=== PATIENT | female | born 1985 ===

== ENCOUNTER 2021-05-03 15:12 | Observation (INO) | payer OTHER, MEDICAID, SELFPAY ==
[2021-05-03] VITALS (9 sets, daily range): BP systolic 89–108; BP diastolic 44–61; PULSE 71–114; RESP 16–18; TEMP 36.3–36.7; O2SAT 98–100; BMI 27.7
[2021-05-03] MEDS: MORPHINE 4 MG/ML INJ (16:24)
[2021-05-03] MEDS: ONDANSETRON 4 MG/2 ML INJ (16:26)
[2021-05-03] MEDS: SODIUM CHLORIDE 0.9% 1,000 ML 100 ML IV (17:18)
[2021-05-03] MEDS: NICOTINE 14 PATCH 14 MG TOP (17:20)
--- NOTE | 2021-05-03 18:23 | P.HP_ITS ---
History of Present Illness History of Present Illness Date Patient Seen: 05/03/21 Time Patient Seen: 16:40 Chief complaint: uti with early sepsis Narrative: This is a 36 year old female with a past medical history of asthma, GERD, Crohn's disease (no current immunotherpay or steroids), fibromyalgia who presented to the [facility] ER with fevers, nausea, nonbloody and nonbilious vomiting, lower abdominal pain that feels like a stabbing sensation, and right-sided back pain. She does endorse urinary frequency but no dysuria over the past couple of days. She denies any recent chest pain, palpitations, cough, shortness of breath, lower extremity edema. She denies any rash. At this [facility] Emergency Room, the patient was febrile to 100.9, tachycardic, but slightly hypertensive in the remainder for vital signs were unremarkable. Sodium level was 133, potassium 3.5, chloride 99, CO2 24, BUN 10, creatinine 1.03, glucose 178, hepatic function labs were unremarkable. Urinalysis showed moderate leukocytes, positive leuk esterase, positive nitrate and was reflexed for culture. The patient also had blood cultures drawn. Microscopic urinalysis revealed greater than 50 wbc's, 3-10 RBCs, and many bacteria. CBC showed a mild leukocytosis with WBC of 10.9, the remainder of her CBC was unremarkable. COVID-19 testing was negative. Urine test was negative. Patient had a CT scan to evaluate for possible obstruction which was unremarkable but did show evidence of left-sided pyelonephritis (though her symptoms are R sided). Abdominal ultrasound did not show any biliary pathology. She was given multiple L of fluid boluses, and ceftriaxone. Patient was accepted for further management of pyelonephritis. Patient History Medical History (Updated 05/03/21 @ 19:42 by Raheem Storey DO) Asthma Crohn disease GERD (gastroesophageal reflux disease) Surgical History (Updated 05/03/21 @ 19:35 by Raheem Storey DO) H/O knee surgery Family & Social History Family history unavailable: Yes (Patient adopted at age 2) Social History: household members family,children Prior Living Arrangements House Safety & Behavioral: Feels Safe in Current Yes Environment Been Physically Hurt or No Threatened By a Person Suicidal Ideation Description None Tobacco & Substance use: Tobacco type cigarettes alcohol intake former Substance Use Type marijuana Meds Home Medications and Allergies Home Medications Medication Instructions Recorded Confirmed Type cetirizine 10 mg tablet 10 mg PO DAILY 05/03/21 05/03/21 History citalopram 40 mg tablet 40 mg PO DAILY 05/03/21 05/03/21 History cyclobenzaprine 10 mg tablet 10 mg PO TID PRN 05/03/21 05/03/21 History dicyclomine 20 mg tablet 20 mg PO Q6HR PRN 05/03/21 05/03/21 History doxepin 10 mg capsule 10 mg PO BEDTIME PRN 05/03/21 05/03/21 History fluticasone propionate 44 2 puff INHALATION DAILY 05/03/21 05/03/21 History mcg/actuation HFA aerosol inhaler fluticasone propionate 50 2 spray INTRANASAL DAILY 05/03/21 05/03/21 History mcg/actuation nasal spray,suspension ibuprofen 800 mg PO PRN PRN 05/03/21 05/03/21 History levonorgestrel 0.15 mg-ethinyl 1 tab PO DAILY 05/03/21 05/03/21 History estradiol 0.03 mg tablet montelukast 10 mg tablet 10 mg PO BEDTIME 05/03/21 05/03/21 History (Singulair) ondansetron 8 mg disintegrating 8 mg PO Q8H PRN 05/03/21 05/03/21 History tablet pantoprazole 40 mg tablet,delayed 40 mg PO DAILY 05/03/21 05/03/21 History release (Protonix) pregabalin 300 mg capsule (Lyrica) 300 mg PO BID 05/03/21 05/03/21 History tramadol 50 mg tablet 50 mg PO TID PRN 05/03/21 05/03/21 History Allergies Allergy/AdvReac Type Severity Reaction Status Date / Time lactase [From Dairy Aid] Allergy Verified 05/03/21 16:46 Penicillins Allergy Verified 05/03/21 16:46 promethazine Allergy Verified 05/03/21 16:46 wheat Allergy Verified 05/03/21 16:46 Review of Systems Review of Systems Narrative: All other systems reviewed with the patient and are negative unless otherwise stated. Exam Vital Signs (past 8 hours): - 05/03/21 16:19 05/03/21 17:20 Temperature 98.1 F Pulse Rate 114 H Respiratory Rate 18 Blood Pressure 108/58 L Pulse Oximetry 100 98 Oxygen Delivery Method Room Air Narrative Exam Narrative: GENERAL APPEARANCE: Well developed, well nourished, but acutely ill appearing female, hunched forward, rocking from nausea and discomfort SKIN: Inspection of the skin reveals no rashes, ulcerations or petechiae. HEENT: Normocephalic atraumatic, extraocular muscles are intact, oropharynx is clear and mucous membranes are moist, neck is supple without adenopathy NECK: Supple and symmetric. no tenderness, or masses were felt. CHEST: Normal AP diameter and normal contour without any kyphoscoliosis. LUNGS: Auscultation of the lungs revealed no wheezes, rhonchi, or rales. CARDIOVASCULAR: There was a regular rate and rhythm without any murmurs, gallops, rubs. Peripheral pulses were 2+ and symmetric. ABDOMEN: soft, non-distended. suprapubic and bilateral lower quadrant tenderness. R sided CVA tenderness. MUSCULOSKELETAL: There was no tenderness or effusions noted. Muscle strength and tone were normal. EXTREMITIES: No cyanosis, clubbing or edema. NEUROLOGIC: Alert and oriented x 3. Strength is +5/5 in the Upper Extremities and Lower Extremities Bilaterally. Sensation to touch was normal. Objective Imaging CT scan - abdomen: Radiologist's impression: IMPRESSION: 1. There is subtle heterogeneous enhancement of the left kidney and ureter with mild left perinephric stranding. These findings could be seen in pyelonephritis. -Recommend correlation with urinalysis. 2. No hydronephrosis. Assessment & Plan Assessment & Plan narrative: This is a 36 year old female with a past medical history of asthma, GERD, Crohn's disease (no current immunotherpay or steroids), fibromyalgia who presented to [facility] ER with fever, abdominal pain. Their ER was on divert, patient transferred here for further management of pyelonephritis. 1. Pyelonephritis, acute, present on admission - continue ceftriaxone 1g q24 hours (given approximately 05/03 @ 1400 at [facility] per nurse report) - CT imaging at [facility] shows L sided pyelonephritis, though patient's symptoms are on the R on exam. - continue fluids - follow up blood and urine cultures from [facility] ER - continue IVF given poor PO intake, bolus as needed. Received sepsis bundle at [facility] ER with 4L IVF and antibiotics given. 2. Asthma, chronic - replace home medications with formulary alternatives. - albuterol prn 3. Crohn's disease, chronic - patient not on any current therapies, planned to start new treatments next week but unclear which one. - she has not had recent diarrhea or flare. 4. GERD, chronic - continue home protonix 5. Fibromyalgia, chronic - continue home medications Code: Full, surrogate decision maker is her mother Dispo: Admitted under observation status DVT: Patient is low risk based on scoring, no need for DVT prophylaxis at this time I have utilized all available immediate resources to obtain, update, or review the patient's current medications. COVID-19 COVID-19 status: Negative Result date/Date tested (Pos, Neg/Pending): 05/03/21 Time Spent With Patient Critical Care time: I spent a total of [] minutes of critical care time on this patient's care today; this time is exclusive of procedural time. Quality MIPS - Admit I confirm the patient?s Advance Care Plan is present, Code status is documented, Surrogate decision maker is in patient?s record [If Yes, STOP here]: Yes
[2021-05-03] MEDS: OXYCODONE IR 5 MG TABLET PO (18:52)
[2021-05-03] MEDS: FLUTICASONE 120 SPRAY/16 GM SPRAY.SUSP NASAL (19:34)
[2021-05-03] MEDS: CITALOPRAM 10 MG TABLET 40 MG PO (19:35)
[2021-05-03] MEDS: LORATADINE 10 MG TABLET PO (19:35)
[2021-05-03] MEDS: BUDESONIDE 0.5 MG/2 ML NEB INH (20:21)
[2021-05-03] MEDS: SODIUM CHLORIDE 0.9% 1,000 ML 250 ML IV (20:34)
[2021-05-03] MEDS: PREGABALIN 75 MG CAPSULE 300 MG PO (20:42)
[2021-05-03] MEDS: TRAMADOL 50 MG TABLET PO (20:42)
[2021-05-03] MEDS: MONTELUKAST 10 MG TABLET PO (20:43)
[2021-05-03] MEDS: ONDANSETRON 4 MG/2 ML INJ IV (21:36)
--- NOTE | 2021-05-03 23:12 | PC.NURSE ---
BP low, provider aware. was only able to start 22g on Rt.forearm, infusing NS at 250cc. pt had multiple pain meds, morphine, oxycodone, tramadol but still having pain 7-8/10, FLACC 0-1. I let her know that her BP dropping could be due to the amount of pain meds she gets. I offered tylenol but she refused, pt says i will wait till I get to talk to the doctor tomorrow, I am too tired to talk.
--- NOTE | 2021-05-03 23:13 | PC.NURSE ---
Addendum to MAR: At 1624, 4mg IV Morphine scanned in the MAR for administration. MAR demonstrates 4mg given but only 2mg were administered, per physician order. The other 2mg remaining were wasted in the Pyxis with a witness verification. Unable to undo/edit the med adminstration in the MAR.
[2021-05-04] VITALS (13 sets, daily range): BP systolic 99–122; BP diastolic 49–76; PULSE 68–85; RESP 12–18; TEMP 36.2–36.9; O2SAT 96–100
[2021-05-04] MEDS: ONDANSETRON 4 MG/2 ML INJ IV ×4 (04:33→18:55)
[2021-05-04] MEDS: TRAMADOL 50 MG TABLET PO ×3 (04:36→18:51)
[2021-05-04] MEDS: ACETAMINOPHEN 325 MG TABLET 650 MG PO ×2 (05:57→14:00)
[2021-05-04 06:05] LABS: Add Manual Diff / Slide Review NO; Basophils Absolute Auto 0 /uL (0-100); Basophils Percent Auto 0.2 % (0-2); Eosinophils Absolute Auto 400 /uL (0-450); Hematocrit 32.4 % (36-46); Hemoglobin 10.7 g/dL (12.0-16.0); Lymphocytes Absolute Auto 1000 /uL (1100-4500); Lymphocytes Percent Auto 13.7 % (25-40); Mean Corpuscular HGB Conc 33.1 % (30-36); Mean Corpuscular Hemoglobin 28.5 PG (26-34); Mean Corpuscular Volume 86.2 fL (80-100); Monocytes Absolute Auto 600 /uL (0-900); Monocytes Percent Auto 8.5 % (3-14); Neutrophils Absolute Auto 5200 /uL (1500-7000); Neutrophils Percent Auto 72.6 % (50-75); Platelet Count 162 X10^3/uL (150-400); Red Blood Cell Count 3.76 X10^6/uL (4.0-5.2); Red Cell Distribution Width 14.9 % (11.6-14.8); White Blood Cell Count 7.1 X10^3/uL (4.5-11.0)
[2021-05-04 06:18] LABS: Alanine Aminotransferase 16 IU/L (<35); Albumin 3.1 g/dL (3.5-5.0); Albumin Globulin Ratio 1.1 (1.0-2.8); Alkaline Phosphatase 27 U/L (38-126); Aspartate Aminotransferase 27 IU/L (14-36); BUN Creatinine Ratio 13.8 (6-22); Bilirubin Total 0.5 mg/dL (0.2-1.3); Blood Urea Nitrogen 9 mg/dL (7-17); Calcium 7.6 mg/dL (8.4-10.2); Carbon Dioxide 25 mmol/L (22-32); Chloride 108 mmol/L (98-107); Estimated Glomerular Filt Rate > 60.0 mL/min (>60); Globulin 2.7 g/dL (1.7-4.1); Glucose 100 mg/dL (70-100); HEMOLYSIS 41 (0-50); Magnesium 1.8 mg/dL (1.6-2.3); Potassium 3.5 mmol/L (3.4-5.1); Sodium 138 mmol/L (137-145); Total Protein 5.8 g/dL (6.3-8.2)
[2021-05-04] MEDS: BUDESONIDE 0.5 MG/2 ML NEB INH ×2 (07:42→19:20)
[2021-05-04] MEDS: CITALOPRAM 10 MG TABLET 40 MG PO (09:18)
[2021-05-04] MEDS: FLUTICASONE 120 SPRAY/16 GM SPRAY.SUSP NASAL (09:18)
[2021-05-04] MEDS: LORATADINE 10 MG TABLET PO (09:19)
[2021-05-04] MEDS: PREGABALIN 75 MG CAPSULE 300 MG PO ×2 (09:19→20:40)
[2021-05-04] MEDS: CYCLOBENZAPRINE 10 MG TABLET PO ×2 (09:19→19:32)
[2021-05-04] MEDS: PANTOPRAZOLE DR 40 MG TABLET PO (09:19)
[2021-05-04] MEDS: NICOTINE 14 PATCH 14 MG TOP (09:19)
[2021-05-04] MEDS: SODIUM CHLORIDE 0.9% 1,000 ML 100 ML IV ×3 (09:20→19:48)
--- NOTE | 2021-05-04 10:21 | CM.DANOTE ---
DCP: Case received, EMR reviewed and met with patient. Introduced self end role. Was able to obtain some information from patient regarding regarding her current living situation prior to hospitalization. DCP assessment completed with information currently available. Patient is a 36 year old female who admitted yesterday afternoon to the care of the hospitalist team. PCP: Dr. Tran Payer: confirmed: [facility] Health Options/Medicaid. Patient came to the hospital, [facility] due to beds not being available for symptoms of UTI/Sepsis. Patient holds current diagnosis of pyelonephritis. She is here on some IV antibiotics. Patient has history of asthma, Chrohn's Disease, as well as Fibromyalgia. Met briefly with patient in her room. She was laying in bed. She is alert and oriented. Confirmed that she resides in [place] with her mother, Idalia. She is independent at baseline, and has primary care provider in the [facility]. She was complaining of pain, felt that she needed her medication every 4 hours. P: DCP to continue to follow. Patient should be able to go home when she is deemed medically stable, and when she can go on oral antibiotics. Radha Galicia RN/Cereal Chemist Discharge Planning/Care Management CM Discharge Assessment Start: 05/04/21 10:20 Freq: Status: Active Protocol: Document 05/04/21 10:20 (Rec: 05/04/21 10:21 [id number]) Discharge Planning Assessment Assigned Mental Health Assistant Radha Galicia RN/Cereal Chemist Advance Directives? No History Provided By Patient,Medical Record Prior Living Arrangements House Household Members family,children Type of transporation used prior to Drives own vehicle admit Independent with ADL's Yes Is patient alert and oriented? Yes Caregiver for Another No Barriers to Discharge No Discharge Plan Home Transportation Arrangement Family Referrals Initiated None needed Whiteboard Updated in Patient Room with Yes name and ext. # of Mental Health Assistant Review Status In Process Next Review Type Continued Stay Review
--- NOTE | 2021-05-04 10:30 | PC.NURSE ---
Addendum entered by Marva Soriano R.N. 05/04/21 11:07: Went to patients room to follow-up on pain medication order change. Patient currently resting with eyes closed, breathing unlabored. Call light in reach. Will continue to monitor Original Note: Patient A/O x 3, resting in bed, VSS, lungs CTA, pt c/o flank back pain 02/10. Discussed pain medication options, patient would like to speak to MD about d/c oxycodone. C/O nausea, zofran administered. Patient up to restroom with SBA, NS infusing at 100cc/hr, site remains free of complications. Patient denies further needs at this time. Call light in reach, will continue to monitor.
[2021-05-04] MEDS: cefTRIAXone 1,000 MG in SODIUM CHLORIDE 0.9% 100 ML 200 ML IV (13:41)
--- NOTE | 2021-05-04 14:58 | PM.PN.1 ---
Subjective Subjective Date Patient Seen: 05/04/21 Time Patient Seen: 08:00 Interval history: Today she states she still has significant back pain. She said she vomitted earlier today when trying to eat. Exam Vital Signs (past 8 hours): - 05/04/21 07:42 05/04/21 08:03 05/04/21 11:00 Temperature 97.2 F L Pulse Rate 68 77 Respiratory Rate 12 16 Blood Pressure 99/60 Pulse Oximetry 99 99 96 05/04/21 11:21 05/04/21 12:15 Temperature 97.9 F Pulse Rate 70 Respiratory Rate 18 Blood Pressure 110/68 Pulse Oximetry 100 99 Oxygen Delivery Method Room Air Oxygen Flow Rate 0 Narrative Exam Narrative: GENERAL APPEARANCE:no acute distress LUNGS: clear bilaterally CARDIOVASCULAR: regular rate and rhythm without any murmurs ABDOMEN: soft, non-distended, mild diffuse tenderness. R CVA tendernessl. EXTREMITIES: No edema. NEUROLOGIC: Alert and oriented x 3. No focal deficits Objective Labs Result Diagrams: 05/04/21 05:35 05/04/21 05:35 Labs: Laboratory Results - last 24 hr 05/04/21 05/04/21 05:35 05:35 WBC 7.1 RBC 3.76 L Hgb 10.7 L Hct 32.4 L MCV 86.2 MCH 28.5 MCHC 33.1 RDW 14.9 H Plt Count 162 Neut % (Auto) 72.6 Lymph % (Auto) 13.7 L [place] % (Auto) 8.5 Eos % (Auto) 5.0 H Baso % (Auto) 0.2 Neut # (Auto) 5200 Lymph # (Auto) 1000 L [place] # (Auto) 600 Eos # (Auto) 400 Baso # (Auto) 0 Sodium 138 Potassium 3.5 Chloride 108 H Carbon Dioxide 25 BUN 9 Creatinine 0.65 Estimated GFR > 60.0 BUN/Creatinine Ratio 13.8 Glucose 100 Calcium 7.6 L Magnesium 1.8 Total Bilirubin 0.5 AST 27 ALT 16 Alkaline Phosphatase 27 L Total Protein 5.8 L Albumin 3.1 L Globulin 2.7 Albumin/Globulin Ratio 1.1 PFSH Medical History (Updated 05/03/21 @ 19:42 by Raheem Storey DO) Asthma Crohn disease GERD (gastroesophageal reflux disease) Surgical History (Updated 05/03/21 @ 19:35 by Raheem Storey DO) H/O knee surgery Social History household members: family and children alcohol intake: former Assessment & Plan Assessment & Plan narrative: 36 year old female with a past medical history of asthma, GERD, Crohn's disease (no current immunotherpay or steroids), fibromyalgia who presented to [facility] ER with fever, abdominal pain. Their ER was on divert, patient transferred here for further management of pyelonephritis. 1. Pyelonephritis, acute, present on admission ?- continue ceftriaxone 1g q24 hours (given approximately 05/03 @ 1400 at [facility] per nurse report) ?- CT imaging at [facility] shows L sided pyelonephritis, though patient's symptoms are on the R on exam. ?- continue fluids ?- follow up blood and urine cultures from [facility] ER 2. Asthma, chronic ?- replace home medications with formulary alternatives. ?- albuterol prn 3. Crohn's disease, chronic ?- patient not on any current therapies, planned to start new treatments next week but unclear which one. ?- she has not had recent diarrhea or flare. 4. GERD, chronic ?- continue home protonix 5. Fibromyalgia, chronic ?- continue home medications Time Spent With Patient Critical Care time: I spent a total of [] minutes of critical care time on this patient's care today; this time is exclusive of procedural time.
[2021-05-04] MEDS: MONTELUKAST 10 MG TABLET PO (20:40)
[2021-05-04] MEDS: METOCLOPRAMIDE 10 MG/2 ML INJ IV (20:48)
[2021-05-04] MEDS: MORPHINE 2 MG/ML INJ 1 MG IV (21:30)
[2021-05-05] MEDS: MORPHINE 2 MG/ML INJ 1 MG IV (02:11)
[2021-05-05] MEDS: ONDANSETRON 4 MG/2 ML INJ IV ×2 (02:19→08:58)
[2021-05-05] MEDS: TRAMADOL 50 MG TABLET PO ×2 (02:53→08:48)
[2021-05-05 03:00] VITALS: O2SAT 99
[2021-05-05 03:44] VITALS: BP 111/69; PULSE 94; RESP 16; TEMP 37.1; O2SAT 98
[2021-05-05] MEDS: CYCLOBENZAPRINE 10 MG TABLET PO (05:44)
[2021-05-05] MEDS: SODIUM CHLORIDE 0.9% 1,000 ML 100 ML IV (05:45)
[2021-05-05 06:32] LABS: Add Manual Diff / Slide Review NO; Basophils Absolute Auto 0 /uL (0-100); Basophils Percent Auto 0.3 % (0-2); Eosinophils Absolute Auto 200 /uL (0-450); Eosinophils Percent Auto 5.1 % (2-4); Hematocrit 31.4 % (36-46); Hemoglobin 10.7 g/dL (12.0-16.0); Lymphocytes Absolute Auto 1000 /uL (1100-4500); Lymphocytes Percent Auto 21.5 % (25-40); Mean Corpuscular HGB Conc 34.1 % (30-36); Mean Corpuscular Hemoglobin 28.9 PG (26-34); Mean Corpuscular Volume 84.6 fL (80-100); Monocytes Absolute Auto 500 /uL (0-900); Monocytes Percent Auto 10.8 % (3-14); Neutrophils Absolute Auto 3000 /uL (1500-7000); Neutrophils Percent Auto 62.3 % (50-75); Platelet Count 190 X10^3/uL (150-400); Red Blood Cell Count 3.72 X10^6/uL (4.0-5.2); White Blood Cell Count 4.8 X10^3/uL (4.5-11.0)
[2021-05-05 06:40] LABS: Alanine Aminotransferase 16 IU/L (<35); Albumin 3.1 g/dL (3.5-5.0); Albumin Globulin Ratio 1.1 (1.0-2.8); Alkaline Phosphatase 38 U/L (38-126); Aspartate Aminotransferase 20 IU/L (14-36); BUN Creatinine Ratio 3.8 (6-22); Bilirubin Total 0.3 mg/dL (0.2-1.3); Blood Urea Nitrogen 3 mg/dL (7-17); Carbon Dioxide 25 mmol/L (22-32); Chloride 107 mmol/L (98-107); Estimated Glomerular Filt Rate > 60.0 mL/min (>60); Globulin 2.7 g/dL (1.7-4.1); Glucose 89 mg/dL (70-100); HEMOLYSIS < 15 (0-50); Magnesium 1.7 mg/dL (1.6-2.3); Potassium 3.5 mmol/L (3.4-5.1); Sodium 139 mmol/L (137-145); Total Protein 5.8 g/dL (6.3-8.2)
[2021-05-05 07:24] VITALS: BP 121/79; PULSE 93; RESP 16; TEMP 37.8; O2SAT 98
[2021-05-05 08:00] VITALS: O2SAT 98
[2021-05-05] MEDS: FLUTICASONE 120 SPRAY/16 GM SPRAY.SUSP NASAL (08:46)
[2021-05-05] MEDS: CITALOPRAM 10 MG TABLET 40 MG PO (08:47)
[2021-05-05] MEDS: NICOTINE 14 PATCH 14 MG TOP (08:47)
[2021-05-05] MEDS: LORATADINE 10 MG TABLET PO (08:47)
[2021-05-05] MEDS: PANTOPRAZOLE DR 40 MG TABLET PO (08:48)
[2021-05-05] MEDS: PREGABALIN 75 MG CAPSULE 300 MG PO (08:48)
[2021-05-05 08:53] VITALS: RESP 18; O2SAT 98
[2021-05-05] MEDS: BUDESONIDE 0.5 MG/2 ML NEB INH (08:53)
--- NOTE | 2021-05-05 18:50 | P.DS_ITS ---
History of Present Illness History of Present Illness Chief complaint: uti with early sepsis Narrative: Per Dr. Storey: his is a 36 year old female with a past medical history of asthma, GERD, Crohn's disease (no current immunotherpay or steroids), fibromyalgia who presented to the [facility] ER with fevers, nausea, nonbloody and nonbilious vomiting, lower abdominal pain that feels like a stabbing sensation, and right- sided back pain. She does endorse urinary frequency but no dysuria over the pa st couple of days. She denies any recent chest pain, palpitations, cough, shortness of breath, lower extremity edema. She denies any rash. At this [facility] Emergency Room, the patient was febrile to 100.9, tachycardic, but slightly hypertensive in the remainder for vital signs were unremarkable. Sodium level was 133, potassium 3.5, chloride 99, CO2 24, BUN 10, creatinine 1.03, glucose 178, hepatic function labs were unremarkable. Urinalysis showed moderate leukocytes, positive leuk esterase, positive nitrate and was reflexed for culture. The patient also had blood cultures drawn. Microscopic urinalysis revealed greater than 50 wbc's, 3-10 RBCs, and many bacteria. CBC showed a mild leukocytosis with WBC of 10.9, the remainder of her CBC was unremarkable. COVID-19 testing was negative. Urine test was negative. Patient had a CT scan to evaluate for possible obstruction which was unremarkable but did show evidence of left-sided pyelonephritis (though her symptoms are R sided). Abdominal ultrasound did not show any biliary pathology. She was given multiple L of fluid boluses, and ceftriaxone. Patient was accepted for further management of pyelonephritis. Discharge Providers Provider Date of admission: 05/03/21 15:12 Discharge Date: 05/05/21 Discharge provider: Jamison Paulino MD Summary Hospital Course Discharge Diagnosis: 1. Acute pyelonephritis with E. coli bacteremia 2. Chronic asthma 3. Chronic crohn's disease 4. GERD 5. Fibromyalgia Hospital Course: Ms. Lewis was admitted with fever and abdominal pain, after transfer from another hospital. She had imaging consistent with pyelonephritis. She had a positive blood culture with E. Coli. She was started on antibiotics and improved. On day of discharge she was feeling better, pain improved, tolerating a diet. She was given antibiotics with levofloxacin for a total 14 d ay course to treat her pyelonephritis and bacteremia. Exam Vital Signs (past 8 hours): Oxygen Delivery Method Room Air Oxygen Flow Rate 0 Narrative Exam Narrative: GENERAL APPEARANCE:no acute distress LUNGS: clear bilaterally CARDIOVASCULAR: regular rate and rhythm without any murmurs ABDOMEN: soft, non-distended, mild diffuse tenderness. R CVA tendernessl. EXTREMITIES: No edema. NEUROLOGIC: Alert and oriented x 3. No focal deficits Objective Labs Result Diagrams: 05/05/21 05:57 05/05/21 05:57 Labs: Laboratory Results - last 24 hr 05/05/21 05/05/21 05:57 05:57 WBC 4.8 RBC 3.72 L Hgb 10.7 L Hct 31.4 L MCV 84.6 MCH 28.9 MCHC 34.1 RDW 15.0 H Plt Count 190 Neut % (Auto) 62.3 Lymph % (Auto) 21.5 L [place] % (Auto) 10.8 Eos % (Auto) 5.1 H Baso % (Auto) 0.3 Neut # (Auto) 3000 Lymph # (Auto) 1000 L [place] # (Auto) 500 Eos # (Auto) 200 Baso # (Auto) 0 Sodium 139 Potassium 3.5 Chloride 107 Carbon Dioxide 25 BUN 3 L Creatinine 0.80 Estimated GFR > 60.0 BUN/Creatinine Ratio 3.8 L Glucose 89 Calcium 8.0 L Magnesium 1.7 Total Bilirubin 0.3 AST 20 ALT 16 Alkaline Phosphatase 38 Total Protein 5.8 L Albumin 3.1 L Globulin 2.7 Albumin/Globulin Ratio 1.1 [facility] Medical History (Updated 05/03/21 @ 19:42 by Raheem Storey DO) Asthma Crohn disease GERD (gastroesophageal reflux disease) Surgical History (Updated 05/03/21 @ 19:35 by Raheem Storey DO) H/O knee surgery Social History household members: family and children alcohol intake: former Discharge Plan Discharge Plan Patient Disposition: Home Provider Discharge Comment: Ms. Lewis came in with an infection called pyelonephritis. The infection also did get in to the blood. This infection improved with antibiotics. She will be discharged home with antibiotics to treat her infection Discharge orders & Medications Prescriptions: New levofloxacin 750 mg tablet 750 mg PO DAILY Qty: 12 RF: 0 Continued cyclobenzaprine 10 mg Tablet 10 mg PO TID PRN (Reason: Muscle Spasm) RF: 0 citalopram 40 mg Tablet 40 mg PO DAILY RF: 0 cetirizine 10 mg tablet 10 mg PO DAILY RF: 0 doxepin 10 mg Capsule 10 mg PO BEDTIME PRN (Reason: Sleep) RF: 0 dicyclomine 20 mg Tablet 20 mg PO Q6HR PRN (Reason: Pain (Scale Score 1-3)) RF: 0 fluticasone propionate 44 mcg/actuation Hfa Aerosol Inhaler 2 puff INHALATION DAILY RF: 0 fluticasone propionate 50 mcg/actuation [place],Suspension 2 spray INTRANASAL DAILY RF: 0 ibuprofen 800 mg PO PRN PRN (Reason: Pain (Scale Score 1-3)) RF: 0 levonorgestrel-ethinyl estrad 0.15-0.03 mg Tablet 1 tab PO DAILY RF: 0 tramadol 50 mg Tablet 50 mg PO TID PRN (Reason: Pain (Scale Score 1-3)) RF: 0 pantoprazole [Protonix] 40 mg Tablet,Delayed Release (Dr/Ec) 40 mg PO DAILY RF: 0 montelukast [Singulair] 10 mg Tablet 10 mg PO BEDTIME RF: 0 pregabalin [Lyrica] 300 mg Capsule 300 mg PO BID RF: 0 Discontinued ondansetron 8 mg Tablet,Disintegrating 8 mg PO Q8H PRN (Reason: Pain (Scale Score 1-3)) RF: 0 Medication counseling provided by Pharmacist: Yes Diet/Activity/Treatments Diet: Regular Visit Report/Discharge Packet Instructions: Kidney Infection Discharge Data Attending Provider: Raheem Storey
== END 2021-05-05 11:49 | disposition home or self-care (01) ==
PROVIDERS: Admitting Provider Internal Medicine; Referring Provider Physician Assistant Medical; Visit Provider Internal Medicine
DX: N10 Acute pyelonephritis (principal); R78.81 Bacteremia; B96.20 Unspecified Escherichia coli [E. coli] as the cause of diseases classified elsewhere; J45.909 Unspecified asthma, uncomplicated; K21.9 Gastro-esophageal reflux disease without esophagitis; K50.90 Crohn's disease, unspecified, without complications; M79.7 Fibromyalgia; F17.210 Nicotine dependence, cigarettes, uncomplicated
CPT/HCPCS: 36415; 80053; 83735; 85025; 94640; 94760; 99406; G0378; G0379; J0696; J2270; J2405; J2765